=== PATIENT | female | born 2000 | race Caucasian/White ===

== ENCOUNTER 2022-01-12 00:33 | Emergency (ER) | payer SELFPAY ==
[~2022-01-12] VITALS: Ht 157.5 cm; Wt 63.5 kg
--- NOTE | 2022-01-12 00:34 | NUR ---
PT SANDRA ALS. TAKEN TO BED 10
[2022-01-12 00:35] VITALS: BP 110/58
[2022-01-12] MEDS ORDERED: NALOXONE 0.4 MG/ML VIAL IVP ONE (00:35)
--- NOTE | 2022-01-12 00:35 | NUR ---
Dr. Irizarry examining patient.
--- NOTE | 2022-01-12 00:45 | NUR ---
Respiratory Therapist at bedside for respiratory intervention.
[2022-01-12 01:01] LABS: BASOPHILS # (AUTO) 0.1 K/uL (0.00-0.22); BASOPHILS % (AUTO) 0.9 % (0.0-2.0); EOSINOPHILS # (AUTO) 0.1 K/uL (0-0.4); EOSINOPHILS % (AUTO) 1.1 % (0.0-4.0); HEMATOCRIT 41.4 % (36-48); HEMOGLOBIN 13.7 g/dL (12.0-16.0); LYMPHOCYTES # (AUTO) 1.8 K/uL (2.5-16.5); MEAN CORPUSCULAR HEMOGLOBIN 27 pg (27-31); MEAN CORPUSCULAR HGB CONC 33 g/dL (33-37); MONOCYTES # (AUTO) 0.4 K/uL (0.8-1.0); MONOCYTES % (AUTO) 5.7 % (1.7-9.3); NEUTROPHILS # (AUTO) 4.3 K/uL (1.8-7.7); NEUTROPHILS % (AUTO) 65.3 % (42.2-75.2); PLATELET COUNT (AUTO) 255 K/uL (140-450); RED BLOOD CELL COUNT(AUTO) 5.11 MIL/uL (4.20-5.40); RED CELL DISTRIBUTION WIDTH 13.5 % (11.6-13.7); WHITE BLOOD COUNT (AUTO) 6.7 K/uL (4.5-11.0)
[2022-01-12 01:17] LABS: APPEARANCE,URINE CLEAR (CLEAR); BILIRUBIN,URINE NEGATIVE (NEGATIVE); BLOOD, URINE NEGATIVE (NEGATIVE); COLOR,URINE YELLOW (YELLOW); LEUKOCYTE ESTERASE ,URINE NEGATIVE (NEGATIVE); NITRITE, URINE NEGATIVE (NEGATIVE); UGLUCOSE NEGATIVE (NEGATIVE)
[2022-01-12 01:24] LABS: SALICYLATE < 2.8 mg/dL (2.8-20.0)
[2022-01-12 01:25] LABS: CREATININE 0.6 mg/dL (0.6-1.3); TOTAL BILIRUBIN 0.2 mg/dL (0.0-1.0)
[2022-01-12] MEDS ORDERED: NACL 0.9% 1,000 ML IV ONE (03:10)
--- NOTE | 2022-01-12 03:23 | NUR ---
PT TAKEN TO CT
[2022-01-12 03:42] LABS: BARBITURATE, URINE NEGATIVE ng/ml (NEG <=200); BENZODIAZEPINE, URINE NEGATIVE ng/mL (NEG <=200); CANNABINOID, URINE POSITIVE ng/mL (NEG <=50); COCAINE, URINE NEGATIVE ng/mL (NEG <=300); OPIATE, URINE NEGATIVE ng/mL (NEG <=2000); PHENCYCLIDINE SCREEN,URINE NEGATIVE ng/mL (NEG <=25)
--- NOTE | 2022-01-12 05:21 | NUR ---
Patient woke up, A/O, X4. Dr. Irizarry examining patient at bedside.
[2022-01-12 06:01] VITALS: BP 102/62
--- NOTE | 2022-01-12 06:01 | NUR ---
Patient discharged with v/s stable. Written and verbal after care instructions given and explained. Patient verbalized understanding. Ambulatory with steady gait. All questions addressed prior to discharge. Advised to follow up with PMD.
== END 2022-01-12 06:01 | disposition home or self-care (01) ==
LOC: MED 00:33
DX: G92.9 Unspecified toxic encephalopathy (principal); F10.129 Alcohol abuse with intoxication, unspecified; R40.1 Stupor; Y90.6 Blood alcohol level of 120-199 mg/100 ml
CPT/HCPCS: 36415; 70450; 80053; 80305; 81003; 81025; 82550; 83605; 85025; 96361; 96374; 99291; G0480; G0482; J2310; J7030; 99285